=== PATIENT | male | born 1965 | race Caucasian/White ===

== ENCOUNTER 2017-06-28 09:58 | Inpatient (IN) | payer BC ==
[2017-06-14 10:58] VITALS: BMI 31.0
--- NOTE | 2017-06-14 11:19 | PAT Medication Instructions ---
Service Date Jun 14, 2017. Current Home Medication List Ascorbic Acid (Vitamin C), 1,000 MG PO QPM Aspirin (Aspirin Ec), 81 MG PO QPM Atorvastatin (Lipitor), 10 MG PO QPM Lisinopril (Zestril), 10 MG PO QPM Multiple Vitamin (Multi Vitamin), 1 TAB PO QPM Medication Instructions For Your Scheduled Surgery - Hold the following medications 24 hours prior to surgery: Lisinopril (Zestril), 10 MG PO QPM - Take the following medications as scheduled the night before surgery: Multiple Vitamin (Multi Vitamin), 1 TAB PO QPM Ascorbic Acid (Vitamin C), 1,000 MG PO QPM Aspirin (Aspirin Ec), 81 MG PO QPM Atorvastatin (Lipitor), 10 MG PO QPM If you have any questions please call us at [phone] or [phone] or [phone]
[2017-06-14 14:06] LABS: HEMATOCRIT 44.2 % (42-52); HEMOGLOBIN 15.2 g/dL (14.0-18.0); MEAN CELL VOLUME 91.1 fL (80-100); MEAN CORPUSCULAR HEMOGLOBIN 31.3 pg (25-34); MEAN CORPUSCULAR HGB CONC 34.4 g/dl (32-36); MEAN PLATELET VOLUME 12.6 fL (7.4-10.4); PLATELET COUNT 125 K/uL (130-400); RED CELL DISTRIBUTION WIDTH CV 12.6 % (11.5-14.5); RED CELL DISTRIBUTION WIDTH SD 42.1 fL (36.4-46.3); WHITE BLOOD COUNT 6.27 K/uL (4.8-10.8)
[2017-06-14 14:10] LABS: CALCIUM 8.9 mg/dl (8.5-10.1); CREATININE 0.83 mg/dl (0.60-1.40); POTASSIUM 4.5 mmol/L (3.5-5.1)
[2017-06-28] VITALS (10 sets, daily range): BP systolic 117–144; BP diastolic 68–99; PULSE 72–98; TEMP 36.3–36.9; O2SAT 92–97; Ht 188 cm; Wt 108.6 kg
[~2017-06-28] VITALS: Ht 188 cm; Wt 108.6 kg
[~2017-06-28 09:58] MED LIST: ASCO10003 PO; ASPI81TA28 PO; ATOR10TA82 PO; ATROPINE SULFATE 0.1 MG/ML 5ML SYR IV PRN; CEFAZOLIN 2000MG IV PUSH 15 ML IV SCH; EpHEDrine SULFATE INJ 50 MG/ML AMP IV PRN; FENTANYL CITRATE INJ 50 MCG/1 ML 2 ML VIAL IV PRN; HYDROmorphone INJ 1 MG/ML SYR IV PRN; LACTATED RINGER'S 1000ML 1,000 ML IV SCH; LISI-461 PO; MULT-1027 PO; ONDANSETRON INJ 2 MG/ML 2 ML VIAL IV PRN; PHENYLEPHRINE 100MCG/ML 5ML SYR IV PRN; PROMETHAZINE HCL INJ 12.5 MG in SODIUM CHLORIDE 0.9% 50ML 50 ML IV PRN
[2017-06-28] MEDS ORDERED: FENTANYL CITRATE INJ 50 MCG/1 ML 2 ML VIAL ONE ×4 (11:45→14:48)
[2017-06-28] MEDS ORDERED: MIDAZOLAM HCL 1 MG/ML 2ML VIAL ONE (11:45)
--- NOTE | 2017-06-28 11:54 | History & Physical Bridge Note ---
H&P Re-Evaluation Bridge Note: I have examined the patient, reviewed the History & Physical and in the interval since the performance of the History & Physical I have noted the following changes of clinical significance: No changes noted
--- NOTE | 2017-06-28 11:55 | History and Physical ---
History & Physical Date Jun 28, 2017. Chief Complaint Back and leg pain History of Present Illness The patient is a 51 year old male with complaints of back and leg pain Additional History Hepatic Disease: No Endocrine Disorder: No Kidney Disease: No Hypertension: Yes Heart Disease: No Bleeding Tendencies: No Infectious Diseases: No Allergies Coded Allergies: No Known Allergies (Unverified , 06/28/17) Home Medications Scheduled Ascorbic Acid (Vitamin C), 1,000 MG PO QPM Aspirin (Aspirin Ec), 81 MG PO QPM Atorvastatin (Lipitor), 10 MG PO QPM Lisinopril (Zestril), 10 MG PO QPM Multiple Vitamin (Multi Vitamin), 1 TAB PO QPM Physical Examination Skin: warm/dry, no rash Eyes: normal inspection, EOMI, sclerae normal ENT: normal ENT inspection, pharynx normal Head: normocephalic, atraumatic Neck: supple, no adenopathy, trachea midline Respiratory/Chest: lungs clear, normal breath sounds, no respiratory distress Cardiovascular: regular rate, rhythm, no edema, no murmur Abdomen / GI: normal bowel sounds, non tender Back: normal inspection Extremities: normal inspection, normal range of motion Neurologic/Psych: no motor/sensory deficits, alert, normal reflexes, oriented x 3 Diagnosis Lumbar spinal stenosis Plan of Treatment L5-S1 decompression and fusion
[2017-06-28] MEDS ORDERED: BUPIVACAINE/EPINEPHRINE 0.5% MPF 1:200,000 30 ML VIAL ONE (12:07)
[2017-06-28] MEDS ORDERED: BACITRACIN 50000 UNIT VIAL ONE (12:07)
[2017-06-28] MEDS ORDERED: HYDROmorphone INJ 2 MG/ML SYR/VIAL ONE ×2 (12:49→14:01)
[2017-06-28] MEDS ORDERED: GLYCOPYRROLATE INJ 0.2 MG/ML VIAL ONE (14:02)
[2017-06-28] MEDS ORDERED: NEOSTIGMINE METHYLSULFATE 1 MG/ML 10ML VIAL ONE (14:02)
[2017-06-28] MEDS ORDERED: PROPOFOL IV EMULSION 10 MG/ML 20 ML VIAL IV ONE (14:02)
[2017-06-28] MEDS ORDERED: ROCURONIUM BROMIDE 10 MG/ML 5 ML VIAL IV ONE (14:02)
[2017-06-28] MEDS ORDERED: LIDOCAINE HCL 2% 2 ML VIAL (20MG/ML) ONE (14:02)
[2017-06-28] MEDS ORDERED: KETOROLAC TROMETHAMINE 30 MG/ML VIAL ONE (14:02)
[2017-06-28] MEDS ORDERED: ONDANSETRON INJ 2 MG/ML 2 ML VIAL ONE ×2 (14:02→14:26)
[2017-06-28] MEDS ORDERED: DEXAMETHASONE SOD INJ 4 MG/ML VIAL ONE (14:02)
[2017-06-28] MEDS ORDERED: FLOSEAL HEMOSTATIC MATRIX 10ML TOP ONE (14:14)
[2017-06-28] MEDS ORDERED: VOLUVEN IN NSS ONE (14:23)
[2017-06-28] MEDS ORDERED: SODIUM CHLORIDE 0.9% 1000ML 1,000 ML IV SCH (14:29)
--- NOTE | 2017-06-28 14:29 | DIAGNOSTIC IMAGING REPORT ---
LUMBAR SPINE 2 OR 3 VIEW CLINICAL HISTORY: L5-S1 DECOMPRESSION/FUSION COMPARISON STUDY: None FINDINGS: 2 intraoperative fluoroscopic spot images are provided for interpretation. 14 seconds of fluoroscopic time was utilized. There are postsurgical changes of a discectomy and interbody fusion at the L5-S1 level. There is posterior pedicle screw fixation. IMPRESSION: Postsurgical changes of an L5-S1 spinal decompression and fusion. Electronically signed by: Joey Rosado M.D. 06/28/2017 2:28 PM Dictated Date/Time: 06/28/2017 2:27 PM
--- NOTE | 2017-06-28 14:29 | [facility] Operative Report ---
Operative Report Operative Date Jun 28, 2017. Pre-Operative Diagnosis Lumbar spinal stenosis Post-Operative Diagnosis Lumbar spinal stenosis Procedure(s) Performed #1 lumbar decompression medial facetectomy foraminotomy L4 5 and L5-S1. #2 posterior spinal fusion L5 S1. #3 placement posterior instrumentation L5-S1. #4 interbody L5-S1. #5 placement of peek cage 12 x 26 mm L5-S1. #6 placement of locally harvested morcellized autograft in the posterior lateral gutters. #7 placement of infuse collagen sponge, master graft in the posterior lateral gutters and osteo-lamp in the interbody disc space. Surgeon Dr. Oneal Tableau Lead Surgeon(s) Ivett Samayoa PA-C Estimated Blood Loss 525ml Findings Severe spinal stenosis with herniated nucleus pulposus Anesthesia Type General Description of Procedure Patient was met with preoperatively case discussed all questions addressed. After informed consent obtained patient was taken to the operative suite underwent intubation and placed in the prone position on the Michael table on top of the Figueroa frame. All bony prominences were well-padded eyes inspected to ensure no external pressure placed upon them. At this point the lumbar spine was prepped and draped in the normal sterile fashion. Sharp dissection with the assistance of Bovie cautery was performed onto an exposing the lamina and transverse processes of L5 from a caudal to cephalad fashion complete laminectomy of L5 was performed partial laminectomy of L4 was performed addressing severe lateral recess and frontal stenosis. Also dressed massive disc herniation L5-S1 the right with significant encroachment traversing S1 nerve root. After this complete pedicle screws were placed in L5 and S1 bilaterally with the assistance of fluoroscopy an appropriate size brant placed. 2 transforaminal approach on the right complete discectomy was performed endplates graded to subcortical bleeding bone and a 12 x 26 mm peek cage filled with osteal bone graft In position. The rods were compressed locked and final position by bilaterally. The transverse processes of L5 and the sacral alar bur to subcortical bleeding bone. Infuse collagen sponge master graft locally harvested morselized Placed posterior gutters. 15 round CM drain inserted. Incision then closed with 1 Vicryl in the fascia 2-0 Vicryl subcutaneous case E4 0 Monocryl for final skin closure Steri-Strips dressings placed. Patient was in the PACU stable condition. Please note Ivett Meza were present throughout the entire procedure involved in patient positioning complex portions of the surgery and final skin closure. I attest to the content of the Intraoperative Record and any orders documented therein. Any exceptions are noted below.
[2017-06-28] MEDS ORDERED: LORAZEPAM INJ 0.5 MG in SYRINGE 0 ML IV PRN (14:30)
[2017-06-28] MEDS ORDERED: LORAZEPAM 0.5 MG TAB PO PRN (14:30)
[2017-06-28] MEDS ORDERED: SOD PHOSPHATE/SOD BIPHOSPHATE ENEMA 132 ML BTL PR PRN (14:30)
[2017-06-28] MEDS ORDERED: METOCLOPRAMIDE HCL INJ 5 MG/ML 2 ML VIAL IV PRN (14:30)
[2017-06-28] MEDS ORDERED: MAGNESIUM HYDROXIDE SUSP 30 ML UDC PO PRN (14:30)
[2017-06-28] MEDS ORDERED: CEFAZOLIN IV 2,000 MG in DEXTROSE 5% 50ML 50 ML IV SCH (14:30)
[2017-06-28] MEDS ORDERED: BISACODYL 10 MG SUPP PR PRN (14:30)
[2017-06-28] MEDS ORDERED: ALUMINUM/MAGNESIUM SUSP 30 ML UDC PO PRN (14:30)
[2017-06-28] MEDS ORDERED: ACETAMINOPHEN IV 100 ML IV PRN (14:30)
[2017-06-28] MEDS ORDERED: DO NOT ADMINISTER FLU VACCINE PRN (14:30)
[2017-06-28] MEDS ORDERED: NALOXONE HCL 0.4 MG/1 ML VIAL/CARP IV PRN ×2 (14:30)
[2017-06-28] MEDS ORDERED: FAMOTIDINE 20 MG TAB PO PRN (14:30)
[2017-06-28] MEDS ORDERED: DO NOT ADMINISTER PNEUMOCOCCAL VACCINE PRN (14:30)
[2017-06-28] MEDS ORDERED: ACETAMINOPHEN 500 MG TAB PO PRN (14:30)
[2017-06-28] MEDS ORDERED: PROMETHAZINE HCL INJ 12.5 MG in SODIUM CHLORIDE 0.9% 50ML 50 ML IV PRN (14:30)
[2017-06-28] MEDS ORDERED: HYDROmorphone HCL 0.5MG/ML 50 ML CASSETTE IV PRN (14:30)
[2017-06-28] MEDS ORDERED: hydrOXYzine HCL 25 MG TAB PO PRN (14:30)
[2017-06-28] MEDS ORDERED: ESMOLOL HCL 10 MG/ML 10 ML VIAL ONE (14:37)
[2017-06-28] MEDS ORDERED: HYDROmorphone HCL 0.5MG/ML 50 ML CASSETTE ONE (14:44)
--- NOTE | 2017-06-28 15:36 | Anesthesiology Progress Note ---
Anesthesia Post Op Note Date & Time Jun 28, 2017 at 15:36 Vital Signs Pain Intensity: 3 Vital Signs Past 12 Hours Date Time Temp Pulse Resp B/P (MAP) Pulse Ox O2 Delivery O2 Flow Rate FiO2 06/28/17 15:20 36.3 92 16 147/85 98 Nasal Cannula 4 06/28/17 15:10 90 17 133/80 97 Nasal Cannula 4 06/28/17 15:00 80 13 141/84 98 Oxymask 10 06/28/17 14:50 85 17 143/101 98 Oxymask 10 06/28/17 14:40 36.5 90 14 142/95 95 Oxymask 10 06/28/17 10:20 36.7 76 18 142/99 97 Room Air Notes Mental Status: alert / awake / arousable, participated in evaluation Pt Amnestic to Procedure: Yes Nausea / Vomiting: adequately controlled Pain: adequately controlled Airway Patency, RR, SpO2: stable & adequate BP & HR: stable & adequate Hydration State: stable & adequate Anesthetic Complications: no major complications apparent Awake, doing well, pain controlled. Doing well, VSS.
[2017-06-28] MEDS: LACTATED RINGER'S 1000ML 1,000 ML IV SCH ×2 (19:30→19:39)
[2017-06-28] MEDS: CEFAZOLIN IV 2,000 MG in SYRINGE 0 ML IV SCH (19:41)
[2017-06-28] MEDS: ONDANSETRON INJ 2 MG/ML 2 ML VIAL IV PRN ×2 (20:00→20:53)
[2017-06-28] MEDS ORDERED: NURSING DECISION MEDICATION ORDER SCH (20:30)
[2017-06-28] MEDS: LISINOPRIL 10 MG TAB PO SCH (20:41)
[2017-06-28] MEDS: DOCUSATE SODIUM/SENNA 50/8.6MG TAB PO SCH (20:42)
[2017-06-28] MEDS: ATORVASTATIN 10 MG TAB PO SCH (20:42)
[2017-06-28] MEDS: ASPIRIN 81 MG ECTAB PO SCH (20:42)
[2017-06-29] VITALS (7 sets, daily range): BP systolic 114–134; BP diastolic 54–80; PULSE 71–91; TEMP 36.5–37; O2SAT 94–96
[2017-06-29] MEDS: LACTATED RINGER'S 1000ML 1,000 ML IV SCH (02:29)
[2017-06-29] MEDS: CEFAZOLIN IV 2,000 MG in SYRINGE 0 ML IV SCH (03:44)
[2017-06-29] MEDS ORDERED: NURSING DECISION MEDICATION ORDER SCH (04:45)
[2017-06-29] MEDS ORDERED: HYDROmorphone INJ 0.5 MG/0.5 ML SYR IV PRN (06:00)
[2017-06-29] MEDS ORDERED: DC PCA SCH (06:00)
[2017-06-29 06:15] LABS: BASO % 0.1 %; BASO ABS # 0.01 K/uL (0-0.2); HEMOGLOBIN 12.1 g/dL (14.0-18.0); IG# 0.02 K/uL (0.00-0.02); LYMPH % 8.8 %; LYMPH ABS # 1.04 K/uL (1.2-3.4); MEAN CELL VOLUME 90.7 fL (80-100); MEAN CORPUSCULAR HEMOGLOBIN 31.3 pg (25-34); MEAN CORPUSCULAR HGB CONC 34.6 g/dl (32-36); MEAN PLATELET VOLUME 11.5 fL (7.4-10.4); MONO % 7.8 %; MONO ABS # 0.92 K/uL (0.11-0.59); NEUT % 83.1 %; NEUT ABS # 9.84 K/uL (1.4-6.5); PLATELET COUNT 116 K/uL (130-400); RED CELL DISTRIBUTION WIDTH CV 12.7 % (11.5-14.5); RED CELL DISTRIBUTION WIDTH SD 42.2 fL (36.4-46.3); WHITE BLOOD COUNT 11.83 K/uL (4.8-10.8)
--- NOTE | 2017-06-29 06:33 | Clinical Documentation Query ---
RICHA Bruce : CLINICAL DOCUMENTATION QUERY Patient is a 51 year old male who underwent posterior lumbosacral decompression and fusion on 06/28. Preoperative H&H was 15.2 g/dl and 44.2%. POD #1, repeat values were 12.1 g/dl and 35%. Total EBL to date is 950 ml's and net I/O is positive for approximately 1,800 ml's. He is being monitored with serial hematology and I/O including drain outputs. In your clinical opinion is this patient being managed for: ( ) Acute blood loss and hemodilutional anemia ( ) Not Agree ( ) Other explanation of clinical findings (Please Explain) ( ) Unable to determine (Please Define) ( ) Need to Discuss The medical record reflects the following clinical findings, treatment, and risk factors. Clinical Indicators: As above Treatment: He is being monitored with serial hematology and I/O including drain outputs. Risk Factors: Acute perioperative blood loss, IVF administration Please clarify and document your clinical opinion in the progress notes and discharge summary. Terms such as "probable", "suspected", "likely", "questionable", "possible", or "still to be ruled out" are acceptable. IF IN AGREEMENT, YOU MUST DOCUMENT ABOVE DIAGNOSTIC STATEMENT IN DAILY PROGRESS NOTES AND DISCHARGE SUMMARY. This document is not part of the patient's record. Thank You, Jono Espino, ERICK [phone]
[2017-06-29 06:52] LABS: CALCIUM 8.3 mg/dl (8.5-10.1); CREATININE 0.89 mg/dl (0.60-1.40); POTASSIUM 4.8 mmol/L (3.5-5.1)
--- NOTE | 2017-06-29 08:12 | Orthopedic Progress Note ---
Orthopedic Progress Note Date of Service Jun 29, 2017. Subjective Post OP Day: 1 Reports: feeling well Additional Notes: Patient is postoperative day 1 lumbar decompression fusion. He's doing well. Only complaint is he has numbness along the right side of his Tongue. CM drain output 110 mL. No radicular complaints. Back pain control. H&H is 112.1 and 35.0 respectively. Objective calves soft nontender, N/V intact, dressing C/D/I, A&O x3 Patient in no obvious distress. He is able to stick his tongue out for me. There is no deviation. Cranial nerves intact. calves is Soft and nontender. Date Time Temp Pulse Resp B/P (MAP) Pulse Ox O2 Delivery O2 Flow Rate FiO2 06/29/17 07:41 37.0 91 19 115/65 (82) 94 Room Air 06/29/17 03:00 36.6 77 16 134/71 (92) 96 Room Air 06/28/17 23:30 Room Air 06/28/17 23:20 36.6 94 18 135/82 (99) 95 Room Air 06/28/17 20:45 79 144/84 (104) 06/28/17 19:23 36.4 72 17 120/68 (85) 97 Nasal Cannula 3.0 06/28/17 18:20 36.3 81 19 133/82 (99) 93 Nasal Cannula 3.0 06/28/17 17:11 96 Nasal Cannula 4.0 06/28/17 17:08 36.8 98 20 117/77 (90) 96 Nasal Cannula 4.0 06/28/17 17:06 96 Nasal Cannula 4.0 06/28/17 16:51 36.9 89 19 136/86 (103) 95 Nasal Cannula 3.0 06/28/17 16:20 36.3 81 19 133/82 (99) 93 Nasal Cannula 3.0 06/28/17 16:00 95 17 133/93 97 Nasal Cannula 4 06/28/17 15:45 97 13 134/95 97 Nasal Cannula 4 06/28/17 15:30 91 17 131/97 97 Nasal Cannula 4 06/28/17 15:20 36.3 92 16 147/85 98 Nasal Cannula 4 06/28/17 15:10 90 17 133/80 97 Nasal Cannula 4 06/28/17 15:00 80 13 141/84 98 Oxymask 10 06/28/17 14:50 85 17 143/101 98 Oxymask 10 06/28/17 14:40 36.5 90 14 142/95 95 Oxymask 10 06/28/17 10:20 36.7 76 18 142/99 97 Room Air Laboratory Results 24 Hours: Test 06/29/17 06:01 White Blood Count 11.83 K/uL Red Blood Count 3.86 M/uL Hemoglobin 12.1 g/dL Hematocrit 35.0 % Mean Corpuscular Volume 90.7 fL Mean Corpuscular Hemoglobin 31.3 pg Mean Corpuscular Hemoglobin Concent 34.6 g/dl Platelet Count 116 K/uL Mean Platelet Volume 11.5 fL Neutrophils (%) (Auto) 83.1 % Lymphocytes (%) (Auto) 8.8 % Monocytes (%) (Auto) 7.8 % Eosinophils (%) (Auto) 0.0 % Basophils (%) (Auto) 0.1 % Neutrophils # (Auto) 9.84 K/uL Lymphocytes # (Auto) 1.04 K/uL Monocytes # (Auto) 0.92 K/uL Eosinophils # (Auto) 0.00 K/uL Basophils # (Auto) 0.01 K/uL Assessment & Plan Assessment: Postoperative day 1 lumbar decompression and instrumented fusion Plan: Patient will physical therapy today. Maintain CM drain. DVT prophylaxis is in the form of teds and SCDs. Continue pain control. He was a bit nauseous this morning from the Dilaudid TEST ENGINEER. We will refer to anesthesia for the thoughts on his numbness on the right side of his tongue.
[2017-06-29] MEDS: OXYCODONE HCL IR 5 MG TAB (IMMEDIATE RELEASE) PO PRN ×3 (10:32→23:23)
[2017-06-29] MEDS ORDERED: KETOROLAC TROMETHAMINE 30 MG/ML VIAL ONE (12:17)
[2017-06-29] MEDS: LISINOPRIL 10 MG TAB PO SCH (20:30)
[2017-06-29] MEDS: ASPIRIN 81 MG ECTAB PO SCH (20:30)
[2017-06-29] MEDS: ATORVASTATIN 10 MG TAB PO SCH (20:30)
[2017-06-29] MEDS: DOCUSATE SODIUM/SENNA 50/8.6MG TAB PO SCH (20:30)
[2017-06-30] MEDS: KETOROLAC TROMETHAMINE 30 MG/ML VIAL IV PRN ×2 (02:35→11:16)
[2017-06-30] MEDS ORDERED: POLYETHYLENE (MIRALAX) 17 GM PACK PO SCH (06:00)
[2017-06-30 07:26] VITALS: BP 102/68; PULSE 72; TEMP 36.6; O2SAT 96
[2017-06-30] MEDS ORDERED: RXC5 PO (07:32)
--- NOTE | 2017-06-30 07:33 | Discharge Instructions ---
Discharge Instructions Date of Service Jun 30, 2017. Admission Reason for Admission: Spinal Stenosis Discharge Discharge Diagnosis / Problem: lumbar stenosis Discharge Goals Goal(s): Improve function Activity Recommendations Activity Limitations: per Instructions/Follow-up section . Instructions / Follow-Up Instructions / Follow-Up ACTIVITY RECOMMENDATIONS: SELF CARE INSTRUCTIONS AFTER THORACIC/LUMBAR FUSIONS 1. You may walk to your tolerance. It is good exercise for your legs and back. Expect some back and intermittent leg aches and pains. 2. You may perform "counter-top" level activities (make a sandwich, tommy with a project, etc.). 3. No bending or lifting of more than 10 pounds or back twisting of any nature (roll like a log when turning in bed). 4. You may ride in a car for 20-30 minutes at a time. No driving until after your first visit with your doctor. 5. Frequent changes of position and restricting sitting to 30 minutes at a time will help limit the amount of back spasms and stiffness you may experience. 6. You may discontinue the use of ambulatory aids (cane, crutches, etc.) once your strength and confidence allow. 7. You may group leader semiconductor testing the shower and let water strike your incision when you arrive home at least once daily. Do not take a tub bath, sit in a hot tub or go into a swimming pool until after your first recheck in the office. SPECIAL CARE INSTRUCTIONS: VERY IMPORTANT TO READ AND REVIEW A. Your surgical incision has been closed with a cosmetic suture under the skin that will dissolve in about 6 weeks. In 14 days, you can use a pair of clean scissors and cut the suture that is left outside of the skin at the ends of your incision. 1. The small skin tapes can be removed 7 days after surgery if they have not fallen off by that point. 2. You may keep the wound open to air as much as possible to promote healing after post-op day number 5 unless told otherwise by your doctor. 3. If you think the wound looks like it is becoming infected (redness or worsening drainage) and/or you are experiencing fever, chill or worsening back pain and muscle spasms, contact the office so that we may evaluate you as soon as possible. B. Complications are uncommon, but please contact us if you have any signs or symptoms of: 1. wound infection (fever higher than 102.5 degrees F, redness, separation of wound, drainage, or increasing pain from the incision) 2. blood clots in legs (pain, swelling, redness and warmth in legs) 3. urinary tract infection (fever higher than 102.5 degrees F, burning upon urination or increased frequency of urination) 4. nerve problems (inability to walk on your toes or heels, numbness, loss of bowel or bladder control) 5. any other symptoms that concern you C. Please call the office at if you have any concerns or questions about your operation or recovery. D. No smoking! Smoking drastically decreases the chance of a solid fusion. E. Do not take any anti-inflammatory medications (Indocin, Advil, Motrin, Aspirin, Naprosyn, etc.) as these may inhibit the chance of a solid fusion. Tylenol is okay to take for pain. MANAGING PAIN AFTER SPINAL SURGERY 1. Narcotic medication is intended for short-term use and will be provided for surgical pain. Surgical pain usually lasts for a period of 4-6 weeks. Narcotic medication includes Percocet, Vicodin, Darvocet, Tylenol #3 or Lortab. 2. Longer-term pain is more appropriately treated with non-narcotic medication such as Tylenol ES. 3. Muscle spasm is not appropriately treated with narcotics. Muscle relaxers such as Soma, Flexeril or Skelaxin can be used along with Tylenol ES. 4. Remember that we all live with some "aches and pains". This is not unusual or uncommon after an injury or as we get older. a. Back pain is expected and may include muscle spasms for 4 to 6 weeks after surgery. The pain should gradually improve. If the pain worsens for no apparent reason, please contact the office. b. Intermittent leg pain may also be experienced and should not be concerned about unless it worsens for no apparent reason. If so, please contact the office. 5. We will provide appropriate medication within the normal guidelines of their prescribed use. We will also be very cautious and aware of potential abuse and extended duration of patients' medication needs. a. Pain medications are for your comfort and to assist with sleep and rest so that the tissue can heal. They are not provided in order to return to normal activity and should not be used through the day. To do so or worsening pain at night can result from ongoing tissue damage and development of tolerance to the prescribed medicine. 6. Please allow 2-3 days to process refills. Prescriptions will not be mailed but must be picked up at the office. FOLLOW UP VISIT: Keep your scheduled follow-up appointment. Any questions, please call the office at . Current Hospital Diet Patient's current hospital diet: Regular Diet Discharge Diet Recommended Diet: Regular Diet Procedures Procedures Performed: #1 lumbar decompression medial facetectomy foraminotomy L4 5 and L5-S1. #2 posterior spinal fusion L5 S1. #3 placement posterior instrumentation L5-S1. #4 interbody L5-S1. #5 placement of peek cage 12 x 26 mm L5-S1. #6 placement of locally harvested morcellized autograft in the posterior lateral gutters. #7 placement of infuse collagen sponge, master graft in the posterior lateral gutters and osteo-lamp in the interbody disc space. Pending Studies Studies pending at discharge: no Medical Emergencies . Who to Call and When: Medical Emergencies: If at any time you feel your situation is an emergency, please call 911 immediately. . Non-Emergent Contact Non-Emergency issues call your: Primary Care Provider . "Provider Documentation" section prepared by Roman Oneal. . VTE Core Measure Inpt VTE Proph given/why not?: Shira Jack, SCD's
[2017-06-30] MEDS: OXYCODONE HCL IR 5 MG TAB (IMMEDIATE RELEASE) PO PRN (08:26)
[2017-06-30 09:37] VITALS: BP 102/68; PULSE 72; TEMP 36.6; O2SAT 96
--- NOTE | 2017-06-30 11:50 | Discharge Summary ---
Orthopedic Discharge Summary Admission Date/Reason Jun 28, 2017 at 12:00 Spinal Stenosis. Discharge Date/Disposition Jun 30, 2017 Home Diagnosis Principal Diagnosis: Lumbar spinal stenosis Admission Physical Exam As per Admitting History & Physical. Hospital Course Patient underwent lumbar decompression fusion tolerated this well was taken to the orthopedic floor postop leak. Postoperative day #1 he was up in the [place] leg pain improved. He progressed nicely through postoperative day #2 and was subsequently discharged home. Discharge orders and instructions found in the chart for further review. Discharge Instructions Please refer to the electronic Patient Visit Report (Discharge Instructions) for additional information.
== END 2017-06-30 11:34 | disposition home or self-care (01) | DRG 455 ==
LOC: C.ACU 09:58 → C.3E 12:00 → ENRESERV 15:58
PROVIDERS: ADMIT Orthopaedic Surgery Orthopaedic Surgery of the Spine; ATTEND Orthopaedic Surgery Orthopaedic Surgery of the Spine
PROC: 0SG30AJ Fusion of Lumbosacral Joint with Interbody Fusion Device, Posterior Approach, Anterior Column, Open Approach (ICD-10-PCS; principal; 2017-06-28 12:45)
PROC: 0ST40ZZ Resection of Lumbosacral Disc, Open Approach (ICD-10-PCS; principal; 2017-06-28 12:45)
PROC: 0SG3071 Fusion of Lumbosacral Joint with Autologous Tissue Substitute, Posterior Approach, Posterior Column, Open Approach (ICD-10-PCS; principal; 2017-06-28 12:45)
DX: M48.061 Spinal stenosis, lumbar region without neurogenic claudication (principal); Z79.82 Long term (current) use of aspirin; Z79.899 Other long term (current) drug therapy

== ENCOUNTER → 2017-09-12 | Outpatient (CLI) | payer BC ==
[~2017-09-12] MED LIST changes: -ATROPINE SULFATE 0.1 MG/ML 5ML SYR IV PRN; -CEFAZOLIN 2000MG IV PUSH 15 ML IV SCH; -EpHEDrine SULFATE INJ 50 MG/ML AMP IV PRN; -FENTANYL CITRATE INJ 50 MCG/1 ML 2 ML VIAL IV PRN; -HYDROmorphone INJ 1 MG/ML SYR IV PRN; -LACTATED RINGER'S 1000ML 1,000 ML IV SCH; -ONDANSETRON INJ 2 MG/ML 2 ML VIAL IV PRN; -PHENYLEPHRINE 100MCG/ML 5ML SYR IV PRN; -PROMETHAZINE HCL INJ 12.5 MG in SODIUM CHLORIDE 0.9% 50ML 50 ML IV PRN; +RXC5 PO
[2017-09-12 14:06] LABS: ALBUMIN 4.2 gm/dl (3.4-5.0); ALT/SGPT 52 U/L (12-78); AST/SGOT 26 U/L (15-37); BLOOD UREA NITROGEN 15 mg/dl (7-18); CALCIUM 8.7 mg/dl (8.5-10.1); CARBON DIOXIDE 31 mmol/L (21-32); CHOLESTEROL 117 mg/dl (0-200); CREATININE 0.91 mg/dl (0.60-1.40); GLUCOSE 91 mg/dl (70-99); POTASSIUM 4.2 mmol/L (3.5-5.1); SODIUM 140 mmol/L (136-145)
[2017-09-12 14:10] LABS: ALKALINE PHOSPHATASE 108 U/L (45-117); LDL CHOLESTEROL CALCULATED 56 mg/dl; TOTAL PROTEIN 7.4 gm/dl (6.4-8.2)
== END | disposition home or self-care (01) ==
LOC: C.LABPBG 07:59
PROVIDERS: ATTEND Family Medicine
DX: I10 Essential (primary) hypertension (principal); E78.5 Hyperlipidemia, unspecified